=== PATIENT | male | born 1955 | race African-American/Black ===

== ENCOUNTER 2023-01-02 09:19 | Emergency (ER) | payer MEDICAID ==
[~2023-01-02] VITALS: Ht 167.6 cm; Wt 59.0 kg
[2023-01-02 09:35] VITALS: BP 195/91; PULSE 91; RESP 18; TEMP 98.8; O2SAT 100
[2023-01-02] MEDS ORDERED: IBUP-2029 MT (10:37)
== END 2023-01-02 11:03 | disposition home or self-care (01) ==
LOC: ER 09:19
DX: M25.512 Pain in left shoulder (principal)
CPT/HCPCS: 73030; 99283